=== PATIENT | male | born 1940 | race Caucasian/White ===

== ENCOUNTER 2018-12-01 15:59 | Inpatient (IN) ==
[2018-12-01] MEDS ORDERED: Piperacillin/Tazobactam 3.375 GM in 0.9 % Sodium Chloride Mini Bag 100 ML IVPB ONE (16:16)
--- NOTE | 2018-12-01 16:16 | Emergency Department Note ---
Disposition Clinical Impression: Acute appendicitis Qualifiers: Acute appendicitis type: unspecified acute appendicitis type Qualified Code(s): K35.80 - Unspecified acute appendicitis Disposition: Admitted As Inpatient Condition: Good Forms: Work/School Release, ED Satisfaction Letter Time of Disposition: 16:51 Abdominal Pain HPI - General Chief Complaint: ED Abdominal Pain Stated Complaint: possible appendicitis Time Seen by Provider: 12/01/18 16:03 Source: patient, EMS Mode of arrival: EMS Limitations: no limitations Nursing Notes Reviewed: Yes Vital Signs Reviewed: Yes - History of Present Illness HPI Narrative: Patient is a 78-year-old male with past medical history of high cholesterol, a fib and elqiuis. Presented today via EMS from the [facility] due to concern for acute appendicitis. Patient states that he has been having some dull right lower quadrant pain for the past 5 days. Rated as mild. He felt that he is constipated, took Ex-Lax yesterday and had a large bowel movement. He stated the pain continued today and he went to an outside [facility] for further evaluation. [facility] and imaging. Lab workup showed white blood cell count of 11.7, left shift. BMP showed no major lab abnormality. CT abdomen and pelvis was performed. Impression was: Appendix is dilated, measuring up to 1 cm with inflammatory changes adjacent to the tip of the appendix, suspicious for tip appendicitis. Patient denies any other fevers, nausea, vomiting, chest pain, shortness of breath, diarrhea, blood in stool, dysuria, hematuria. He rates his pain a 1 out of 10. He denies receiving any pain medication or antibiotics prior to arrival. No allergies. - Related Data Home Medications Medication Instructions Recorded Confirmed Finasteride [Proscar] 5 mg PO DAILY 07/16/16 07/16/16 Simvastatin [Zocor] 20 mg PO DAILY 07/16/16 07/16/16 Tamsulosin [Flomax] 0.4 mg PO DAILY 07/16/16 07/16/16 Previous Rx's Medication Instructions Recorded Enoxaparin [Lovenox] 100 mg SQ BID #14 syringe 07/18/16 Lisinopril [Zestril] 20 mg PO DAILY 30 Days tablet 07/18/16 Metoprolol [Lopressor] 12.5 mg PO BID 30 Days tablet 07/18/16 Warfarin [Coumadin] 5 mg PO DAILY@1800 #30 tablet 07/18/16 Allergies Allergy/AdvReac Type Severity Reaction Status Date / Time No Known Allergies Allergy Verified 07/16/16 20:26 Abdominal Pain PMH - Past Medical History Medical history: Reports: arthritis, hyperlipidemia, renal disease (BPH- prostatism), other Psychiatric history: Reports: no psych history - Social History Smoking status: Former smoker Alcohol use: Reports: rarely Drug use: Reports: none Course Course Narrative: Vitals stable. Patient has mild right lower quadrant pain on exam. No peritoneal signs. Currently rates pain 110. He is currently refusing any pain medication at this time. I consulted surgery, spoke with Dr. Deng Castro . After discussing case, lab and imaging findings, physical exam findings she has requested that we admit the patient to hospitalist service with surgery as a consult. She wants Eliquis held for 24 hours and then we will reassess with likely surgery in 24 hours. She did request Zosyn to be started. We will admit hospitalist service for further care. Vital Signs Temperature 97.6 F 12/01/18 16:23 Pulse Rate 73 12/01/18 16:23 Respiratory Rate 18 12/01/18 16:23 Blood Pressure 171/104 12/01/18 16:23 O2 Sat by Pulse Oximetry 97 12/01/18 16:23 Temperature 97.6 F 12/01/18 16:23 Pulse Rate 74 12/01/18 16:42 Respiratory Rate 18 12/01/18 16:42 Blood Pressure 140/86 12/01/18 16:42 O2 Sat by Pulse Oximetry 95 12/01/18 16:42 Oxygen Delivery Oxygen Delivery Room Air Abdominal Pain - MDM Narrative Medical decision making narrative: Vitals stable. Patient has mild right lower quadrant pain on exam. No peritoneal signs. Currently rates pain 110. He is currently refusing any pain medication at this time. I consulted surgery, spoke with Dr. Deng Castro . After discussing case, lab and imaging findings, physical exam findings she has requested that we admit the patient to hospitalist service with surgery as a consult. She wants Eliquis held for 24 hours and then we will reassess with likely surgery in 24 hours. She did request Zosyn to be started. We will admit hospitalist service for further care. - Medical Records Medical records reviewed: Yes I reviewed the patient's medical records. - Lab Data Lab results reviewed: Yes I reviewed the patient's lab results. - Radiology Data Radiology results reviewed: Yes I reviewed the patient's radiology results. - EKG Data EKG attestation: Yes I reviewed and interpreted this EKG. EKG results narrative: 12/01/2018 at 16:39. A. fib. Rate 68. QRS 92. QTC 430. Normal axis. No acute ST elevation or depression. No acute changes from old EKG on 07/08/2016. S.B.Freida - Greg Situation: Demographics, MOA Background: Presenting Complaint, Relevant PMH, Meds, & Allergies Assessment: Vital Signs, Course and respsone to treatment, Exam Concerns, Patient/Family Expectation, Pertinant Lab Results Recommendation: Barrier(s) to disposition, Recommendation based on pending studies, treatments, or consults S.BShelton Report Given to: Dr. Jovani Garza Repor Time: 16:51 Attestation Statement - Attestation Attestation: I, Marques Jon DO, examined this patient [id number] and my medical decision-making was reviewed with Dr. Guanaco Bartlett, Resident Physician. I agree with the documented findings, disposition and treatment plan as described except to the extent set forth below. Please see my progress notes for details.
--- NOTE | 2018-12-01 16:29 | Emergency Department Note ---
Disposition Clinical Impression: Acute appendicitis Qualifiers: Acute appendicitis type: unspecified acute appendicitis type Qualified Code(s): K35.80 - Unspecified acute appendicitis Disposition: Admitted As Inpatient Forms: ED Satisfaction Letter, Work/School Release General Adult HPI - General Chief complaint: ED Abdominal Pain Stated complaint: possible appendicitis Time Seen by Provider: 12/01/18 16:03 Source: patient, EMS Mode of arrival: EMS Limitations: no limitations - Related Data Home Medications Medication Instructions Recorded Confirmed Finasteride [Proscar] 5 mg PO DAILY 07/16/16 07/16/16 Simvastatin [Zocor] 20 mg PO DAILY 07/16/16 07/16/16 Tamsulosin [Flomax] 0.4 mg PO DAILY 07/16/16 07/16/16 Previous Rx's Medication Instructions Recorded Enoxaparin [Lovenox] 100 mg SQ BID #14 syringe 07/18/16 Lisinopril [Zestril] 20 mg PO DAILY 30 Days tablet 07/18/16 Metoprolol [Lopressor] 12.5 mg PO BID 30 Days tablet 07/18/16 Warfarin [Coumadin] 5 mg PO DAILY@1800 #30 tablet 07/18/16 Allergies Allergy/AdvReac Type Severity Reaction Status Date / Time No Known Allergies Allergy Verified 07/16/16 20:26 Past Medical History - Past Medical History Medical history: Reports: arthritis, hyperlipidemia, renal disease (BPH- prostatism), other Surgical history: Reports: other (Colonoscopy. Hemorrhoidectomy. Right tympanoplasty.) Psychiatric history: Reports: no psych history - Social History Smoking Status: Former smoker Smokeless Tobacco Status: No Alcohol use: Reports: rarely Drug use: Reports: none Physical Exam - General Limitations: no limitations Attestation Statement - Attestation Attestation: I, Marques Jon DO, examined this patient [id number] and my medical decision-making was reviewed with Dr. Guanaco Bartlett, Resident Physician. I agree with the documented findings, disposition and treatment plan as described except to the extent set forth below. Please see my progress notes for details. 78-year-old male presents emergency room from the [facility] for evaluation of abdominal pain. Patient had CT imaging completed at that facility secondary to the abdominal discomfort. CT scan shows concerning for possible tip appendicitis. Patient's pain is a 1 on arrival here. His vital signs otherwise been stable. Patient was not provided with any antibiotics or pain medication prior to coming. Patient denies any other specific surgical history or issue. Patient otherwise is denying chest pain, shortness of breath, nausea, vomiting, diarrhea. No fevers no chills. Patient otherwise is asymptomatic. Labs reviewed from outside facility showing a slightly elevated white blood cell count and neutrophilia. Urinalysis is negative. CT scan was reviewed. Coagulation studies were added on. EKG was also collected. Patient had antibiotic regiment Zosyn started. Consultation was placed with the on-call surgeon Dr. Oneill. Recommended admission the hospital team. Patient is otherwise in no specific distress at this time. Patient is otherwise clinically stable. He will be monitoring emergency room until admission process is completed. Documentation of the physical exam, medical intervention, medical decision-making and disposition the resident physician's note. No critical care applied the patient's treatment course at this time.
[2018-12-01 16:50] LABS: INR 1.3; Prothrombin Time 14.8 Seconds (9.4-12.1)
[2018-12-01 16:53] LABS: Activated Partial Thrombo Time 34.5 Seconds (26.0-36.0)
[2018-12-01] MEDS ORDERED: Naloxone 0.4 MG/ML INJ IVP PRN (17:18)
[2018-12-01] MEDS ORDERED: *HR* Morphine 2 MG/ML SYRINGE IVP PRN (17:26)
[2018-12-01] MEDS ORDERED: Ondansetron 4 MG/2 ML VIAL IVP PRN (17:26)
--- NOTE | 2018-12-01 18:45 | Internal Med History&Physical ---
Date of Encounter: 12/01/18 Time of Encounter: 18:00 Internal Medicine - H&P: HPI Chief complaint: Abdominal pain of 5 days duration History of present illness: Mr. Castro is a 78 year old male with pmh of atrial fibrillation, dyslipidemia presenting with complaints of abominal pain of 5 days duration. Patient notes he had a bad cold about 10 days ago, which he was able to shake off but began to experience abdominal pain afterwards. Pain was described as a lower abdominal discomfort that waxed and waned in intensity. He took a laxative and experienced some relief, but went to urgent care today at the [facility] because of persistent pain. He had a CT scan done there showing an inflamed appendix and he was sent to the ER here. In the ER, he was started on zosyn and surgery has been consulted. He is being admitted for further management Past Med Surg Social Fam HX - Past Medical History Medical history: arthritis, atrial fibrillation, hyperlipidemia, renal disease, other Additional medical history: bph Psychiatric history: no psych history - Past Surgical History Surgical History: other - Social History Smoking Status: Former smoker Smokeless Tobacco Status: No Alcohol use: rarely Drug use: none - Family History Mother Age at : 93 Cause of : pneumonia Hx Family Cardiac Disorders: Yes Hx Family Respiratory Disorders: Yes Hx Family Cancer: No Hx Family GI Disorders: No Hx Family Endocrine Disorder: No - Additional Family History Additional family history: Family history was reviewed and is non contributory Internal Medicine - H&P: Meds Simvastatin [Zocor] 10 mg PO DAILY 07/16/16 [History] Tamsulosin [Flomax] 0.4 mg PO DAILY 07/16/16 [History] Metoprolol [Lopressor] 12.5 mg PO BID 30 Days tablet 07/18/16 [Rx] Apixaban [Eliquis] 5 mg PO BID 12/01/18 [History] Cholecalciferol (Vitamin D3) [Vitamin D] 400 unit PO DAILY 12/01/18 [History] Allergy/AdvReac Type Severity Reaction Status Date / Time No Known Allergies Allergy Verified 07/16/16 20:26 All Systems PM: A 10-system review of systems was performed and is negative for pertinent findings except as documented above in the HPI. - Constitutional Constitutional: no chills, no fever(s), no night sweats - EENT Eyes: no change in vision, no discharge, no pain, no photophobia Ears: no ear discharge, no ear pain, no tinnitus Nose, mouth and throat: no dysphagia, no nasal discharge, no neck pain, no sore throat - Cardiovascular Cardiovascular ROS IM: no chest pain, no diaphoresis, no dyspnea, no lig htheadedness, no palpitations, no syncope - Respiratory Respiratory: no cough, no dyspnea, no wheezing, no excessive phlegm production - Gastrointestinal Gastrointestinal: as per HPI, abdominal pain, no diarrhea, no hematemesis, no hematochezia, no melena, no nausea, no vomiting - Musculoskeletal Musculoskeletal ROS IM: no numbness, no tingling - Integumentary Integumentary IM: no rash, no unusual bruising - Neurological Neurological ROS: no confusion, no convulsions, no focal weakness, no numbness, no tingling, no tremor(s) - Hematologic/Lymphatic Hematologic/Lymphatic: no easy bruising - Constitutional Vitals: Temp Pulse Resp BP Pulse Ox 97.6 F 71 18 146/91 96 12/01/18 16:23 12/01/18 17:57 12/01/18 17:57 12/01/18 17:57 12/01/18 17:57 Exam: NAD - Head Head exam: Present: atraumatic, normocephalic - Eye Eye exam: Present: PERRL, conjuntiva pink, sclera anicteric Pupils: Present: PERRL - Neck Neck exam general surgery: Present: supple, trachea midline. Absent: lymphadenopathy - Respiratory Respiratory exam: Present: CTAB. Absent: accessory muscle use, rales, rhonchi, wheezes - Cardiovascular Cardiovascular exam: Present: RRR, +S1, +S2. Absent: diastolic murmur, gallop, rubs, systolic murmur - GI/Abdominal GI/Abdominal exam: Present: normal bowel sounds, soft, tenderness, no peritoneal signs. Absent: distended - Extremities Exam Extremities exam: Present: warm, radial pulses palpable and symmetrical. Absent: calf tenderness, cyanotic, pedal edema - Neurological Exam Neurological exam: Present: CN II-XII intact, oriented X3, no focal deficits. Absent: pronater drift, facial droop, speech deficit - Skin Skin exam: Present: dry, intact - Assessment and Plan (1) Acute appendicitis Current Visit: Yes Status: Acute Assessment and plan: Pt presents with abdominal pain. CT abdomen showed inflamed appendix start on zosyn. Surgery consulted. Eliquis held. NPO Qualifiers: Appendicitis abscess presence: without abscess Qualified Code(s): K35.30 - Acute appendicitis with localized peritonitis, without perforation or gangrene (2) Atrial fibrillation Current Visit: Yes Status: Acute Assessment and plan: Continue metoprolol. Hold eliquis Qualifiers: Atrial fibrillation type: paroxysmal Qualified Code(s): I48.0 - Paroxysmal atrial fibrillation (3) Dyslipidemia Current Visit: Yes Status: Acute Assessment and plan: On simvastatin. Will hold (4) DVT prophylaxis Current Visit: Yes Status: Acute Assessment and plan: SCDs - Time Spent With Patient Total time spent is greater than 50% in coordination of care (as documented) at patient's floor/unit and/or counseling patient:
[2018-12-01] MEDS ORDERED: 0.9 % Sodium Chloride 1,000 ML ONE (18:55)
--- NOTE | 2018-12-01 20:04 | AcuteCare Surgery Consult Note ---
Date of Encounter: 12/01/18 Time of Encounter: 19:35 Assessment and Plan (1) Acute appendicitis Current Visit: Yes Status: Acute Pt diagnosis of acute appendicitis is discussed. Laparoscopic Appendectomy is recommended. Procedure for the surgery, risks and benefits are discussed in detail. Possible known complications for Laparoscopic Appendectomy are bleeding, infection, ureteral injury, small intestine or colon injury, bladder injury, stroke, DVT/PE, SC or . Pt understands these risks, which in this case are low. Pt wishes to proceed with surgery as soon as possible. Informed consent is obtained. Pt condition is stable. Surgery is scheduled. IV Zosyn. NPO after MN. Qualifiers: Acute appendicitis type: unspecified acute appendicitis type Qualified Code(s): K35.80 - Unspecified acute appendicitis (2) Atrial fibrillation Current Visit: Yes Status: Acute Hold Eliquis. Qualifiers: Atrial fibrillation type: paroxysmal Qualified Code(s): I48.0 - Paroxysmal atrial fibrillation History of Present Illness Consult date: 12/01/18 Reason for consult: abdominal pain Requesting physician: Abby Kirk History of present illness: Pt [facility]/o severe RLQ abdominal pain. The pain has progressively worsened over the last 5 days. Pain reportedly began around the belly button and has settled in RLQ. Pt reports nausea without vomiting. He states he has had a cold. Pt denies changes in urination or bowel movements. Denies pain like this previously. Reports +fever. Past Med Surg Social Fam HX - Past Medical History Medical history: arthritis, atrial fibrillation, hyperlipidemia, renal disease, other Additional medical history: bph Psychiatric history: no psych history - Past Surgical History Surgical History: other - Social History Smoking Status: Former smoker Smokeless Tobacco Status: No Alcohol use: rarely Drug use: none - Family History Mother Age at : 93 Cause of : pneumonia Hx Family Cardiac Disorders: Yes Hx Family Respiratory Disorders: Yes Hx Family Cancer: No Hx Family GI Disorders: No Hx Family Endocrine Disorder: No Medications and Allergies Simvastatin [Zocor] 10 mg PO DAILY 07/16/16 [History] Tamsulosin [Flomax] 0.4 mg PO DAILY 07/16/16 [History] Metoprolol [Lopressor] 12.5 mg PO BID 30 Days tablet 07/18/16 [Rx] Apixaban [Eliquis] 5 mg PO BID 03/15/19 [History] Cholecalciferol (Vitamin D3) [Vitamin D] 400 unit PO DAILY 12/01/18 [History] Allergy/AdvReac Type Severity Reaction Status Date / Time No Known Allergies Allergy Verified 07/16/16 20:26 Review of Systems All systems PM: The remainder of the systems were reviewed and are negative - Constitutional as per HPI, anorexia, chills, fever(s), no weakness, no weight loss - EENT Nose, mouth and throat: dry mouth, nasal congestion, no dizziness, no dysphagia, no nasal discharge, no sinus pain, no sinus pressure, no sore throat - Cardiovascular no chest pain, no dyspnea, no edema, no syncope - Respiratory no cough, no dyspnea, no wheezing - Gastrointestinal abdominal pain, nausea, no bloating, no constipation, no diarrhea, no vomiting - Genitourinary urinary hesitancy, no dysuria, no urinary frequency, no urinary incontinence, no urinary urgency - Musculoskeletal no back pain, no joint swelling, no limited range of motion, no neck pain - Integumentary dry skin, no rash, no wounds, no jaundice - Neurological no dizziness, no focal weakness, no weakness - Psychiatric no anxiety, no depression - Hematologic/Lymphatic no easy bleeding, no easy bruising General Surgery Exam Initial Vital Signs Temp Pulse Resp BP Pulse Ox 97.6 F 73 18 171/104 97 12/01/18 16:23 12/01/18 16:23 12/01/18 16:23 12/01/18 16:23 12/01/18 16:23 - General physical appearance negative: well developed, well nourished, no distress - Eyes PERRL, normal ocular movement. negative: icteric - ENT normal mucosa, no congestion. negative: nasal discharge - Neck no masses, no lymphadectomy, no venous distension - Respiratory normal respiratory effort, clear to auscultation - Cardiovascular Cardiovascular exam: Present: RRR - Abdomen Abdomen general surgery: Present: soft, tender. Absent: guarding, rebound Abdominal Tenderness: Present: RLQ - Genitourinary Present: normal penis with no external lesions - Integumentary Integumentary general surgery: Present: warm and dry - Musculoskeletal Present: normal posture - Psychiatric Psychiatric general surgery: Present: A&Ox3, appropriate Exam Initial Vital Signs Temp Pulse Resp BP Pulse Ox 97.6 F 73 18 171/104 97 12/01/18 16:23 12/01/18 16:23 12/01/18 16:23 12/01/18 16:23 12/01/18 16:23 Results - Labs Abnormal lab results PT 14.8 Seconds (9.4-12.1) H 12/01/18 16:17 All other labs normal. - Imaging CT scan - abdomen: report reviewed CT scan - pelvis: report reviewed Consult Discharge Plan - Plan [facility]errals: [facility] [Primary Care Provider[facility] -
[2018-12-01] MEDS: 0.9 % Sodium Chloride 1,000 ML IVC SCH (21:15)
[2018-12-01] MEDS: Piperacillin/Tazobactam 3.375 GM in 0.9 % Sodium Chloride Mini Bag 100 ML IVPB SCH (23:36)
[2018-12-02 04:03] LABS: Basophils # 0.1 K/mcL (0.0-0.2); Basophils % 0.5 %; Eosinophils # 0.3 K/mcL (0.0-0.6); Eosinophils % 2.8 %; Hematocrit 43.2 % (37.5-50.1); Hemoglobin 14.5 g/dL (12.9-16.9); Immature Granulocytes % 0.3 % (0-4); Lymphocytes % 20.3 %; Mean Corpuscular HGB Conc 33.6 g/dL (31.6-35.5); Mean Corpuscular Hemoglobin 30.9 pg (28.0-33.3); Mean Corpuscular Volume 92.1 fL (83.0-100.0); Mean Platelet Volume 10.8 fL (9.4-12.4); Monocytes # 0.9 K/mcL (0.0-1.3); Monocytes % 9.1 %; Neutrophils # 6.7 K/mcL (1.6-8.9); Platelet Count 194 K/mcL (140-400); Red Blood Count 4.69 M/mcL (4.19-5.50); Red Cell Distribution Width 12.8 % (11.5-14.5)
[2018-12-02 04:22] LABS: BUN/Creatinine Ratio 15 (6-26); Blood Urea Nitrogen 18 mg/dL (8-23); Calcium 9.1 mg/dL (8.6-10.3); Carbon Dioxide 27 mEq/L (23-29); Chloride 103 mEq/L (98-107); Glucose 98 mg/dL (70-105); Magnesium 2.2 mg/dL (1.6-2.6); Osmolality,Calculated 290 (280-300); Phosphorous 3.7 mg/dL (2.7-4.5); Potassium 4.1 mEq/L (3.5-5.1); Sodium 139 mEq/L (136-145); eGFR For Non-African Americans 57 (> 60)
[2018-12-02] MEDS: Piperacillin/Tazobactam 3.375 GM in 0.9 % Sodium Chloride Mini Bag 100 ML IVPB SCH (07:55)
--- NOTE | 2018-12-02 08:47 | Internal Med Progress Note ---
<Gerardo Duran - Last Filed: 12/02/18 08:45> Hospitalist Progress Note - Encounter Date of Encounter: 12/02/18 Time of Encounter: 08:45 - Subjective Interval History: No acute events overnight. He reports he has some mild abdominal pain. He denies nausea, vomiting, diarrhea. Patient is nothing by mouth awaiting appende ctomy today. - Exam Vitals: Temp Pulse Resp BP Pulse Ox 97.8 F 88 16 114/73 95 12/02/18 06:43 12/02/18 06:43 12/02/18 06:43 12/02/18 06:43 12/02/18 06:43 Exam: General: pleasant, without distress Cardiovascualr: Regular rate and rhythm with no murmur, absent gallops or rubs, absent pedal edema, radial pulses 2 out of 4 Lungs: Clear to auscultation bilaterally, not in respiratory distress Abdomen: Soft nontender, nondistended positive bowel sounds, absent hepatomegaly Skin: warm and dry, absent rash, absent open wounds and nodules MSK: absent clubbing, cyanosis, joints without swelling Neuro: Alert oriented 3, no focal deficits Psych: good insight and judgment - Assessment and Plan (1) Acute appendicitis Current Visit: Yes Status: Acute Assessment and Plan: Plan for appendectomy today Continue Zosyn does not meet sirs criteria (2) Atrial fibrillation Current Visit: Yes Status: Acute Assessment and Plan: continue metoprolol eliquis held rate controlled and regular (3) DVT prophylaxis Current Visit: Yes Status: Acute Assessment and Plan: EPCDs (4) Dyslipidemia Current Visit: Yes Status: Acute Assessment and Plan: holding simvastatin - Time Spent with Patient Total time spent is greater than 50% in coordination of care (as documented) at patient's floor/unit and/or counseling patient: Internal Medicine: Result - Labs CBC & Chem 7: 12/02/18 03:52 12/02/18 03:52 Labs: Short CBC 12/02/18 Range/Units 03:52 WBC 10.0 (4.3-11.1) K/mcL Hgb 14.5 (12.9-16.9) g/dL Hct 43.2 (37.5-50.1) % Plt Count 194 (140-400) K/mcL Neutrophils # 6.7 (1.6-8.9) K/mcL [facility] 12/02/18 03:52 Sodium 139 Potassium 4.1 Chloride 103 Carbon Dioxide 27 BUN 18 Creatinine 1.24 Glucose 98 Calcium 9.1 - ABG Interpretation ABG results: PT/INR, D-dimer PT 14.8 Seconds (9.4-12.1) H 12/01/18 16:17 Consult Discharge Plan - Plan [facility]errals: [facility] [Primary Care Provider] - Prescriptions: Oxycodone HCl/Acetaminophen [Percocet 5-325 mg Tablet] 1 each PO Q4HR 7 Days #28 tablet <Abby Kirk A - Last Filed: 12/02/18 15:52> Hospitalist Progress Note - Encounter Date of Encounter: 12/02/18 - Exam Vitals: Temp Pulse Resp BP Pulse Ox 98.2 F 67 16 126/75 96 12/02/18 14:36 12/02/18 14:36 12/02/18 14:36 12/02/18 14:36 12/02/18 14:36 - Assessment and Plan (1) Acute appendicitis Current Visit: Yes Status: Acute (2) Atrial fibrillation Current Visit: Yes Status: Acute (3) Dyslipidemia Current Visit: Yes Status: Acute (4) DVT prophylaxis Current Visit: Yes Status: Acute - Time Spent with Patient Total time spent is greater than 50% in coordination of care (as documented) at patient's floor/unit and/or counseling patient: Internal Medicine: Result - Labs CBC & Chem 7: 12/02/18 03:52 12/02/18 03:52 Labs: Short CBC 12/02/18 Range/Units 03:52 WBC 10.0 (4.3-11.1) K/mcL Hgb 14.5 (12.9-16.9) g/dL Hct 43.2 (37.5-50.1) % Plt Count 194 (140-400) K/mcL Neutrophils # 6.7 (1.6-8.9) K/mcL [facility] 12/02/18 03:52 Sodium 139 Potassium 4.1 Chloride 103 Carbon Dioxide 27 BUN 18 Creatinine 1.24 Glucose 98 Calcium 9.1 - ABG Interpretation ABG results: PT/INR, D-dimer PT 14.8 Seconds (9.4-12.1) H 12/01/18 16:17 - Attending Attestation I have seen and independently assessed this patient and agree with plan as documented Plan Acute appendicitis. Surgery on board for laparoscopic appedectomy. continue zosyn <Gerardo Duran - Last Filed: 12/02/18 08:45> (1) Acute appendicitis Qualifiers: Acute appendicitis type: unspecified acute appendicitis type Qualified Code(s): K35.80 - Unspecified acute appendicitis (2) Atrial fibrillation Qualifiers: Atrial fibrillation type: paroxysmal Qualified Code(s): I48.0 - Paroxysmal atrial fibrillation <Abby Kirk - Last Filed: 12/02/18 15:52> (1) Acute appendicitis Qualifiers: Appendicitis abscess presence: without abscess Qualified Code(s): K35.30 - Acute appendicitis with localized peritonitis, without perforation or gangrene (2) Atrial fibrillation Qualifiers: Atrial fibrillation type: paroxysmal Qualified Code(s): I48.0 - Paroxysmal atrial fibrillation
--- NOTE | 2018-12-02 12:54 | Anesthesia Evaluation PreOp ---
Date of Encounter: 12/02/18 Time of Encounter: 12:51 - Past History Planned Operation: Lap. Appy. 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) Other Medical History: Renal (CRD), Other (BPH) Alcohol Use: rarely Drug use: none Medications and Allergies RX: Simvastatin [Zocor] 10 mg PO DAILY 07/16/16 [History] RX: Tamsulosin [Flomax] 0.4 mg PO DAILY 07/16/16 [History] RX: Metoprolol [Lopressor] 12.5 mg PO BID 30 Days tablet 07/18/16 [Rx] RX: Apixaban [Eliquis] 5 mg PO BID 12/01/18 [History] RX: Cholecalciferol (Vitamin D3) [Vitamin D3] 400 unit PO DAILY 12/01/18 [History] Oxycodone HCl/Acetaminophen [Percocet 5-325 mg Tablet] 1 each PO Q4HR 7 Days #28 tablet 12/02/18 [Rx] Allergy/AdvReac Type Severity Reaction Status Date / Time No Known Allergies Allergy Verified 07/16/16 20:26 - Meds/Allergy Pre-op Review Medications Reviewed: Yes If Beta Blockers taken, Date/Time (Last Dose taken): 07:56 today Anesthesia Results - Labs 12/02/18 03:52 12/02/18 03:52 - Imaging EKG: report reviewed (ATRIAL FIBRILLATION MINIMAL ST DEPRESSION ABNORMAL RHYTHM ECG) Additional studies: Echo with Saline Contrast Name: Ancelmo Castro Date of Study: 07/17/2016 Impressions: LVEF 60%. Normal left ventricular size and systolic function. Mildly enlarged left atrial size. Normal right ventricular size and function. No significant valvular dysfunction. Unable to assess RVSP. TRPG is 29 mmHg. No IVC window. There is no evidence of a PFO by color Doppler or saline contrast. Clinical correlation is suggested. Anesthesia Exam Vital Signs/O2 Sat, Most Current Temp Pulse Resp BP Pulse Ox 97.8 F 78 18 119/74 93 12/02/18 10:29 12/02/18 10:29 12/02/18 10:29 12/02/18 10:29 12/02/18 10:29 NPO (# of Hours): > 8 hrs Pain Scale: 0 Pain Scale Used: Numeric (1 - 10) - HEENT Pupil (Motor): Pupils equal, EOMI Mallampati: III (Recessed chin) Teeth: Normal Oral Opening: Greater than 3 - HAND ROLLER LOC: Oriented HAND ROLLER Motor: Normal RUE, Normal LUE, Normal RLE, Normal LLE, Normal Face HAND ROLLER Sensory: Normal: RUE, LUE, RLE, LLE, Face - Cardiac Rhythm: Irregular Murmur: None JVD: No Carotid Bruit: No - Pulmonary Breath Sounds: bilateral Clear Respiratory Effort: Symmetrical Anesthesia Assess/Plan ASA Score: 3 Level of consciousness: Cooperative Anesthetic Plan: General Autologous Blood: Yes Monitoring Plan: Standard Monitors Recovery Plan: PACU
[2018-12-02] MEDS: 0.9 % Sodium Chloride 1,000 ML IVC SCH (13:43)
[2018-12-02] MEDS ORDERED: *HR* Propofol 200 MG/20 ML VIAL IVP ONE (14:33)
[2018-12-02] MEDS ORDERED: *HR* Succinylcholine 200 MG/10 ML VIAL IVP ONE (14:37)
[2018-12-02] MEDS ORDERED: Dexamethasone 4 MG/ML VIAL ONE (14:37)
[2018-12-02] MEDS ORDERED: Lidocaine -MPF 2% 2 ML VIAL ONE (14:37)
[2018-12-02] MEDS ORDERED: *HR* Rocuronium Bromide 50 MG/5 ML VIAL ONE (14:37)
[2018-12-02] MEDS ORDERED: Ondansetron 4 MG/2 ML VIAL ONE (14:37)
[2018-12-02] MEDS ORDERED: *HR* FentaNYL (PF) 100 MCG/2 ML VIAL ONE (14:56)
[2018-12-02] MEDS ORDERED: Bupivacaine/EPI 1:200k 0.5%PF 30 ML VIAL ONE (15:25)
[2018-12-02] MEDS ORDERED: *HR* PHENYLEPHRINE 1,000 MCG/10 ML SYRINGE IVP ONE (16:20)
--- NOTE | 2018-12-02 16:31 | Operative Note ---
Date of procedure: 12/02/18 Pre-op diagnosis: acute appendicitis Post-op diagnosis: same Procedure: Laparoscopic Appendectomy Anesthesia: GETA Surgeon: Alek Castro Was there an real estate legal assistant present: No Estimated blood loss (cc): 25 Specimen: appendix Condition: stable Disposition: PACU Procedure in Detail: This 78 year-old male was taken to the operating room and placed in supine position. Anterior abdominal wall was prepped and draped in the usual sterile fashion. A 2 cm curvilinear incision is made in the infraumbilical area and subcutaneous tissues are dissected to the anterior rectus fascia. Fascia was grasped with a Chuck clamp and elevated. The fascia was divided. Posterior rectus fascia and peritoneum were elevated and divided in the same manner. A postoperative inserted and pneumoperitoneum was achieved. The patient is rotated to the left. Under direct visualization after the injection of 0.5% Marcaine a 5 mm port is inserted in suprapubic area and a 10-12 mm port is inserted in the left lower quadrant. Exploration of the intra-abdominal cavity reveals an acutely inflamed appendix. The appendix is grasped at the tip and elevated. The base of the appendix is identified. A rent was made in the mesoappendix near the base and a linear MARQUISE stapling devices stapled across the appendix at its base. White vascular reload was then used to staple across the mesoappendix. The appendix is removed from the intra-abdominal cavity using an Endo Catch bag. Copious irrigation was carried out in the right pericolic gutter Blair's pouch and pelvis. The fascia at the left lower quadrant port site is closed using 0 Vicryl sutures in an endo-closure device. The pneumoperitoneum was allowed to escape. All ports are removed under direct visualization. Fascia at the infraumbilical incision was closed using 0 Vicryl suture. All skin incisions are closed using 4-0 Monocryl subcuticular stitches. Steri-Strips are placed. Sterile Band-Aids were placed. Patient tolerated procedure well was taken to PACU in good condition.
--- NOTE | 2018-12-02 16:49 | Discharge Summary ---
Orders not resulted at time of discharge: Pending orders 12/01/18 16:11 ECG 12 lead ECG [ECG] Stat 12/02/18 16:23 Surgical Pathology [PTH] Routine 12/03/18 04:00 BMP [Basic Metabolic Panel] AM 0400 Complete Blood Count [HEME] AM 0400 Date of Encounter: 12/02/18 Time of Encounter: 16:45 - Discharge Diagnosis (1) Acute appendicitis Priority: Primary Status: Acute Comments: s/p lap appendectomy Qualifiers: Acute appendicitis type: unspecified acute appendicitis type Qualified Code(s): K35.80 - Unspecified acute appendicitis (2) Atrial fibrillation Priority: Secondary (restart Eliquis tomorrow) Status: Acute Qualifiers: Atrial fibrillation type: paroxysmal Qualified Code(s): I48.0 - Paroxysmal atrial fibrillation General Surgery Exam Initial Vital Signs Temp Pulse Resp BP Pulse Ox 97.6 F 73 18 171/104 97 12/01/18 16:23 12/01/18 16:23 12/01/18 16:23 12/01/18 16:23 12/01/18 16:23 - Hospital Course Hospital course: Mr. Castro is a 78 year old male was admitted with acute appendicitis. He was started on IV antibiotics and IV pain control. He was taken to the operating room for laparoscopic appendectomy. His postoperative course was not complicated. He was discharged home on postoperative day #0 in good condition. - Time Spent with Patient Total time spent providing and/or coordinating discharge services: - Discharge Medications Prescriptions: New Oxycodone HCl/Acetaminophen [Percocet 5-325 mg Tablet] 1 each PO Q4HR 7 Days #28 tablet Continue Tamsulosin [Flomax] 0.4 mg PO DAILY Simvastatin [Zocor] 10 mg PO DAILY Metoprolol [Lopressor] 12.5 mg PO BID 30 Days tablet Apixaban [Eliquis] 5 mg PO BID Cholecalciferol (Vitamin D3) [Vitamin D3] 400 unit PO DAILY Home Medications: Simvastatin [Zocor] 10 mg PO DAILY 07/16/16 [History] Tamsulosin [Flomax] 0.4 mg PO DAILY 07/16/16 [History] Metoprolol [Lopressor] 12.5 mg PO BID 30 Days tablet 07/18/16 [Rx] Apixaban [Eliquis] 5 mg PO BID 12/01/18 [History] Cholecalciferol (Vitamin D3) [Vitamin D3] 400 unit PO DAILY 12/01/18 [History] Oxycodone HCl/Acetaminophen [Percocet 5-325 mg Tablet] 1 each PO Q4HR 7 Days #28 tablet 12/02/18 [Rx] Allergies/Adverse Reactions: Allergy/AdvReac Type Severity Reaction Status Date / Time No Known Allergies Allergy Verified 07/16/16 20:26 Date of admission: 12/01/18 17:18 [facility] care physician: [facility] Consults: 12/01/18 16:17 Consult to Surgery [CONS] Stat Consulting Provider: Acute Care [id number] Reason for Consult: acute appy Time Notified: 16:17 Call Completed: Yes Discharging clinician: Alek Castro Anticipated date of discharge: 12/02/18 Labs on day of discharge: Labs from last 24 hours 12/02/18 12/02/18 12/02/18 05:20 03:52 03:52 WBC 10.0 RBC 4.69 Hgb 14.5 Hct 43.2 MCV 92.1 MCH 30.9 MCHC 33.6 RDW 12.8 Plt Count 194 MPV 10.8 Immature Gran % 0.3 Seg Neutrophils % 67.0 Lymphocytes % 20.3 Monocytes % 9.1 Eosinophils % 2.8 Basophils % 0.5 Neutrophils # 6.7 Lymphocytes # 2.0 Monocytes # 0.9 Eosinophils # 0.3 Basophils # 0.1 PT INR APTT Sodium 139 Potassium 4.1 Chloride 103 Carbon Dioxide 27 BUN 18 Creatinine 1.24 Est GFR ( Amer) > 60 Est GFR (Non-Af Amer) 57 L BUN/Creatinine Ratio 15 Glucose 98 POC Glucose 88 Calculated Osmolality 290 Calcium 9.1 Phosphorus 3.7 Magnesium 2.2 12/01/18 12/01/18 23:57 16:17 WBC RBC Hgb Hct MCV MCH MCHC RDW Plt Count MPV Immature Gran % Seg Neutrophils % Lymphocytes % Monocytes % Eosinophils % Basophils % Neutrophils # Lymphocytes # Monocytes # Eosinophils # Basophils # PT 14.8 H INR 1.3 APTT 34.5 Sodium Potassium Chloride Carbon Dioxide BUN Creatinine Est GFR ( Amer) Est GFR (Non-Af Amer) BUN/Creatinine Ratio Glucose POC Glucose 95 Calculated Osmolality Calcium Phosphorus Magnesium - Patient Status Disposition: Home, Self-Care Overall status at discharge: patient is back to baseline - Discharge Instructions Follow Up With: [facility] [Primary Care Provider[facility] - Additional Instructions: Follow-up with Char Sequeira CNP for post-op follow-up in 2 weeks - Diet and Activity Activity: increase activity as tolerated, other (No lifting greater than 20# for 2 weeks) Diet: advance to your usual diet
[2018-12-02 17:11] VITALS: BP 133/87
--- NOTE | 2018-12-02 17:13 | Operative Note ---
Date of procedure: 12/02/18 Pre-op diagnosis: acute appendicitis Post-op diagnosis: same Procedure: Laparoscopic appendectomy Anesthesia: GETA Surgeon: Alek Castro Was there an social science research assistant present: No Estimated blood loss (cc): 15 Specimen: appendix Condition: stable Disposition: PACU Procedure in Detail: This 78 year-old male was taken to the operating room and placed in supine position. Anterior abdominal wall was prepped and draped in the usual sterile fashion. A 2 cm curvilinear incision is made in the infraumbilical area and subcutaneous tissues are dissected to the anterior rectus fascia. Fascia was grasped with a Chuck clamp and elevated. The fascia was divided. Posterior rectus fascia and peritoneum were elevated and divided in the same manner. A postoperative inserted and pneumoperitoneum was achieved. The patient is rotated to the left. Under direct visualization after the injection of 0.5% Marcaine a 5 mm port is inserted in suprapubic area and a 10-12 mm port is inserted in the left lower quadrant. Exploration of the intra-abdominal cavity reveals an acutely inflamed appendix. The appendix is grasped at the tip and elevated. The base of the appendix is identified. A rent was made in the mesoappendix near the base and a linear MARQUISE stapling devices stapled across the appendix at its base. White vascular reload was then used to staple across the mesoappendix. The appendix is removed from the intra-abdominal cavity using an Endo Catch bag. Copious irrigation was carried out in the right pericolic gutter Blair's pouch and pelvis. The fascia at the left lower quadrant port site is closed using 0 Vicryl sutures in an endo-closure device. The pneumoperitoneum was allowed to escape. All ports are removed under direct visualization. Fascia at the infraumbilical incision was closed using 0 Vicryl suture. All skin incisions are closed using 4-0 Monocryl subcuticular stitches. Steri-Strips are placed. Sterile Band-Aids were placed. Patient tolerated procedure well was taken to PACU in good condition.
[2018-12-02] MEDS ORDERED: *HR* OxyCODONE/APAP 5/325 TABLET PO PRN (17:28)
[2018-12-02] MEDS ORDERED: 0.9 % Sodium Chloride 1,000 ML IVC SCH (17:28)
[2018-12-02] MEDS ORDERED: OXYCODONE Oral CONC 10 MG/0.5 ML ORAL.SYG SL PRN (17:28)
[2018-12-02] MEDS ORDERED: Ondansetron 4 MG/2 ML VIAL IVP PRN (17:28)
[2018-12-02] MEDS ORDERED: Naloxone 0.4 MG/ML INJ IVP PRN (17:28)
--- NOTE | 2018-12-02 17:54 | Anesthesia Evaluation Post Op ---
Date of Encounter: 12/02/18 Time of Encounter: 17:54 - Vital Signs Vital Signs: Vital Signs/O2 Sat, Most Current Temp Pulse Resp BP Pulse Ox 98.7 F 82 14 133/87 95 12/02/18 17:08 12/02/18 17:08 12/02/18 17:08 12/02/18 17:08 12/02/18 17:08 - Lungs Lungs: Clear Ascult./Percussion - Airway Airway: Non-obstructed - Cardiovascular Regular Rate - Mental Status Mental Status: Alert & Oriented, Answers Appropriately - Pain Pain Scale: 0 Pain Scale used: Numeric (1 - 10) - Nausea Vomiting Nausea Vomiting: Not Present - Hydration Hydration: Ice chips, Has not voided - Discharge PostOp Status: Transfer Patient to floor
[2018-12-03] MEDS ORDERED: Piperacillin/Tazobactam 3.375 GM in 0.9 % Sodium Chloride Mini Bag 100 ML IVPB SCH
== END 2018-12-02 19:15 | disposition home or self-care (01) | DRG 343 ==
LOC: 3ANU 15:59 → EMEROOARM 15:59 → SUATTDRO 17:18 → 3ANU 18:26
PROVIDERS: ADMIT Internal Medicine; ATTEND Student in an Organized Health Care Education/Training Program